=== PATIENT | male | born 1995 | race Caucasian/White ===

== ENCOUNTER 2017-06-13 23:46 | Emergency (ER) | payer SELFPAY ==
[~2017-06-13] VITALS: Ht 172.7 cm; Wt 63.0 kg
[2017-06-14 00:13] LABS: BASOPHIL (%) 0.3 % (0-1); EOSINOPHIL (%) 0.2 % (0-5); HEMATOCRIT 40.8 % (38.0-50.0); IMMATURE GRANULOCYTE (%) 1.2 % (0.0-0.7); LYMPHOCYTE (%) 5.2 % (15-42); LYMPHOCYTE COUNT 0.5 K/uL (1.0-2.8); MCH 31.3 PG (29.0-34.0); MCHC 34.3 G/DL (30.0-36.0); MCV 91.3 FL (86-99); MONOCYTE (%) 5.6 % (3-12); MONOCYTE COUNT 0.5 K/uL (0-0.8); NEUTROPHIL (%) 87.5 % (45-76); NEUTROPHIL COUNT 8.1 K/uL (1.8-6.4); PLATELET COUNT 174 K/uL (156-360); RBC DIS.WIDTH-CV 12.3 % (11.8-14.6); RBC DIS.WIDTH-SD 41.1 % (39-53); RED BLOOD COUNT 4.47 M/uL (4.00-5.50); WHITE BLOOD COUNT 9.3 K/uL (4.1-10.2)
[2017-06-14 00:22] LABS: ALBUMIN 4.6 g/dL (3.2-4.8); CHLORIDE 104 mEq/L (99-109); POTASSIUM 4.3 mEq/L (3.7-5.4); SODIUM 139 mEq/L (136-147)
[2017-06-14 00:24] LABS: GLUCOSE 210 mg/dL (70-99); TOTAL PROTEIN 7.4 g/dL (6.4-8.3)
[2017-06-14 00:26] LABS: TOTAL BILIRUBIN 0.3 mg/dL (0.0-1.0)
[2017-06-14 00:27] LABS: SERUM ETHYL ALCOHOL 15 mg/dL
[2017-06-14 00:28] LABS: ALKALINE PHOSPHATASE 82 IU/L (3-129); GFR ESTIMATE (CALCULATED) > 59 mL/min/ (58.99-99999)
[2017-06-14 00:29] LABS: UREA NITROGEN (BUN) 11 mg/dL (9-23)
[2017-06-14 00:30] LABS: AST (GOT) 70 IU/L (2-34)
[2017-06-14 00:31] LABS: ALT (GPT) 66 IU/L (3-49)
[2017-06-14] MEDS ORDERED: NARCAN4 MG NS (04:16)
[2017-06-14] MEDS ORDERED: TRAZODONE HCL50 MG PO (04:19)
[2017-06-14] MEDS ORDERED: ZOFRAN ODT4 MG PO (04:19)
[2017-06-14 05:39] VITALS: BP 99/61
== END 2017-06-14 05:39 | disposition home or self-care (01) ==
LOC: EDBD 23:46 → EME 23:46
PROVIDERS: Emergency Medicine
DX: T40.1X1A Poisoning by heroin, accidental (unintentional), initial encounter (principal); F17.200 Nicotine dependence, unspecified, uncomplicated
CPT/HCPCS: 80053; 85025; 93005; 99281; 99285; G0480; J2310; J2405